=== PATIENT | female | born 1990 | race Caucasian/White ===

== ENCOUNTER → 2016-07-05 | Outpatient (CLI) | payer OTHER ==
[~2016-07-05] MED LIST: RECLIPSEN 0.151 TAB PO; ZOLOFT 100MG100 MG
== END ==
LOC: BHSO 16:19
DX: F41.1 Generalized anxiety disorder (principal)

== ENCOUNTER → 2017-03-19 | Outpatient (CLI) | payer OTHER | LOC: BHSO 15:41 | DX: F41.1 Generalized anxiety disorder (principal) ==